=== PATIENT | female | born 1985 | race Caucasian/White ===

== ENCOUNTER 2020-01-21 07:29 | Day surgery (SDC) | payer OTHER ==
[~2020-01-21 07:29] MED LIST: CIPRO500 MG PO; INTESTINEX1 CA1 PO; PERCOCET 5/3251 TAB PO
== END 2020-01-21 12:00 | disposition home or self-care (01) ==
LOC: AMB-ENDOS 07:29
PROVIDERS: ATTEND Surgery
DX: K62.89 Other specified diseases of anus and rectum (principal); K64.8 Other hemorrhoids; Z20.828 Contact with and (suspected) exposure to other viral communicable diseases